=== PATIENT | male | born 1960 | race Hispanic/Latino ===

== ENCOUNTER → 2024-11-11 | Day surgery (SDC) | payer MEDICARE ==
[2024-11-09 15:36] LABS: BASOPHILS % 0.5 % (0.0-1.0); EOSINOPHILS % 2.0 % (0.0-6.0); LYMPHOCYTES % 26.0 % (18.0-39.1); MONOCYTES % 8.9 % (4.4-11.3); NEUTROPHILS % 61.6 % (38.7-80.0); RED CELL DISTRIBUTION WIDTH 12.4 % (11.7-14.4)
[2024-11-09 15:58] LABS: EST GLOMERULAR FILTRATION RATE 98.0 ML/MIN (>=60)
[~2024-11-11] MED LIST: DEXAMETHASONE SOD PHOS INJ 4 MG/ML SDV ONE; FENTANYL CITRATE/PF 100MCG/2 ML INJ ONE; KETOROLAC TROMETHAMINE 30 MG/ML VIAL ONE; LIDOCAINE HCL 2% LOCAL INJ 5 ML SDV VIAL INJ ONE; MIDAZOLAM HCL 2 MG/2 ML VIAL ONE; ONDANSETRON HCL INJ 2MG/ML 2ML 2 MG/ML VIAL ONE; PROPOFOL IV EMULSION 10 MG/ML 20 ML VIAL ONE
[2024-11-11] MEDS: LACTATED RINGER'S 1,000 ML ONE (10:46)
[2024-11-11 12:58] VITALS: TEMP 97.7
[2024-11-11] MEDS: HYDROCODONE/APAP 7.5MG-325MG 1 EA TAB ONE (13:59)
[2024-11-11 14:05] VITALS: BP 132/72; PULSE 66; RESP 17; O2SAT 99
== END | disposition home or self-care (01) ==
LOC: OR 08:15
PROVIDERS: ATTEND Surgery
DX: K42.0 Umbilical hernia with obstruction, without gangrene (principal); Z01.810 Encounter for preprocedural cardiovascular examination; Z01.812 Encounter for preprocedural laboratory examination
CPT/HCPCS: 36415; 49594; 71046; 80048; 85025; 88302; 93005; C1781; J1100; J1885; J2003; J2250; J2405; J2704; J3010; J7121